=== PATIENT | female | born 1995 | race Caucasian/White ===

== ENCOUNTER 2017-05-10 20:16 | Inpatient (IN) | payer OTHER ==
[~2017-05-10] VITALS: Ht 172.7 cm; Wt 168.7 kg
[2017-05-10 23:12] LABS: BASOPHIL % 1.2 % (0-2); PLATELET COUNT 214 x10^3mcL (130-400); RED CELL DISTRIBUTION WIDTH 14.4 % (11.5-14.5)
[2017-05-10 23:26] LABS: UA SPECIFIC GRAVITY 1.005 (1.005-1.035); microscopic required? YES
[2017-05-10 23:27] LABS: urine erythrocyte 2+ (NEGATIVE)
[2017-05-10 23:31] LABS: T3 TOTAL 1.14 ng/mL
[2017-05-10 23:36] LABS: ALBUMIN 3.5 g/dL (3.4-5.0); ALKALINE PHOSPHATASE 88 U/L (46-116); ALT/SGPT 68 U/L (14-59); AST/SGOT 33 U/L (15-37); BILIRUBIN TOTAL 0.3 mg/dL (0.20-1.00); CALCIUM 9.1 mg/dL (8.5-10.1); CARBON DIOXIDE 28.1 mmol/L (21-32); CHLORIDE SERUM 99 mmol/L (98-107); CHOLESTEROL 176 mg/dL (<200); CHOLESTEROL/HDL RATIO 4.9; GFR1 > 60 mL/min; HDL CHOLESTEROL 36 mg/dL (40-60); LIPASE 161 IU/L (73-393); POTASSIUM SERUM 4.2 mmol/L (3.5-5.1); SODIUM SERUM 133 mmol/L (136-145); TOTAL PROTEIN, SERUM 7.4 g/dL (6.4-8.2); TRIGLYCERIDES 180 mg/dL (<150)
[2017-05-10 23:40] LABS: GLUCOSE SERUM 633 mg/dL (74-106)
[2017-05-10 23:46] LABS: FREE T4 1.1 ng/dL (0.76-1.46); FREE THYROXINE INDEX 2.7 ug/dL (1.4-4.5); T4(THYROXINE) 7.5 ug/dL (4.7-13.3)
[2017-05-11] VITALS (7 sets, daily range): BP systolic 117–157; BP diastolic 76–89
[2017-05-11 00:23] LABS: MAGNESIUM 1.9 mg/dL (1.8-2.4); PHOSPHOROUS 4.7 mg/dL (2.5-4.9)
[2017-05-12 06:35] VITALS: BP 11/78
[2017-05-12 06:42] LABS: CALCIUM 8.8 mg/dL (8.5-10.1); CHLORIDE SERUM 105 mmol/L (98-107); CREATININE SERUM 0.6 mg/dL (0.6-1.0); GFR1 > 60 mL/min; GLUCOSE SERUM 263 mg/dL (74-106); MAGNESIUM 1.7 mg/dL (1.8-2.4); PHOSPHOROUS 4.7 mg/dL (2.5-4.9); POTASSIUM SERUM 3.7 mmol/L (3.5-5.1); SODIUM SERUM 139 mmol/L (136-145)
[2017-05-12 07:30] VITALS: BP 155/83
[2017-05-12] MEDS ORDERED: GLU5 PO (11:18)
[2017-05-12] MEDS ORDERED: LIPI20 PO (11:19)
[2017-05-12] MEDS ORDERED: ZES10 PO (11:22)
[2017-05-12] MEDS ORDERED: LAC PO (11:22)
[2017-05-12] MEDS ORDERED: METFORMIN HCL1000 MG PO (11:23)
[2017-05-12] MEDS ORDERED: DIFLUCAN150 MG PO (11:24)
[2017-05-12] MEDS ORDERED: MAC100 PO (11:27)
[2017-05-12] MEDS ORDERED: LANCETS1 EACH MC (12:01)
[2017-05-12] MEDS ORDERED: TEST STRIPS1 EACH MC (12:01)
[2017-05-12 15:31] VITALS: BP 127/61
== END 2017-05-12 16:09 | disposition home or self-care (01) | DRG 420 ==
LOC: ED 20:16 → DU 23:50 → MU 05-11 14:25
PROVIDERS: Specialist; ADMIT Family Medicine
DX: E11.00 Type 2 diabetes mellitus with hyperosmolarity without nonketotic hyperglycemic-hyperosmolar coma (NKHHC) (principal); Z68.43 Body mass index [BMI] 50.0-59.9, adult; I10 Essential (primary) hypertension; N39.0 Urinary tract infection, site not specified; I16.0 Hypertensive urgency; N76.0 Acute vaginitis; Z83.3 Family history of diabetes mellitus; Z82.49 Family history of ischemic heart disease and other diseases of the circulatory system; E66.01 Morbid (severe) obesity due to excess calories; B35.6 Tinea cruris; E87.1 Hypo-osmolality and hyponatremia; E78.2 Mixed hyperlipidemia; R31.9 Hematuria, unspecified
CPT/HCPCS: 36600; 82962; 83880; 84439; 87491; 87591; J0696; J1815; J3490; J7030; Q0092

== ENCOUNTER 2017-12-09 16:39 | Emergency (ER) | payer OTHER ==
[~2017-12-09] VITALS: Ht 172.7 cm; Wt 150.6 kg
[~2017-12-09 16:39] MED LIST: DIFLUCAN150 MG PO; GLU5 PO; LAC PO; LANCETS1 EACH MC; LIPI20 PO; MAC100 PO; METFORMIN HCL1000 MG PO; TEST STRIPS1 EACH MC; ZES10 PO
[2017-12-09 16:44] VITALS: BP 203/106; Ht 172.7 cm; Wt 150.6 kg
== END 2017-12-09 18:21 | disposition home or self-care (01) ==
LOC: ED 16:39
DX: L02.415 Cutaneous abscess of right lower limb (principal); I10 Essential (primary) hypertension; E11.9 Type 2 diabetes mellitus without complications
CPT/HCPCS: J2001

== ENCOUNTER 2017-12-11 17:36 | Emergency (ER) | payer OTHER ==
[~2017-12-11] VITALS: Ht 172.7 cm; Wt 146.5 kg
[2017-12-11 18:09] VITALS: Ht 172.7 cm; Wt 146.5 kg
[2017-12-11 18:50] VITALS: BP 157/91
== END 2017-12-11 18:50 | disposition home or self-care (01) ==
LOC: ED 17:36
DX: L02.415 Cutaneous abscess of right lower limb (principal); I10 Essential (primary) hypertension; E11.9 Type 2 diabetes mellitus without complications

== ENCOUNTER 2018-01-31 15:53 | Emergency (ER) | payer OTHER ==
[~2018-01-31] VITALS: Ht 172.7 cm; Wt 147.0 kg
[2018-01-31 15:57] VITALS: Ht 172.7 cm; Wt 147.0 kg
[2018-01-31 17:52] VITALS: BP 124/57
== END 2018-01-31 17:52 | disposition home or self-care (01) ==
LOC: ED 15:53
DX: J20.8 Acute bronchitis due to other specified organisms (principal); I10 Essential (primary) hypertension; E11.9 Type 2 diabetes mellitus without complications; E78.00 Pure hypercholesterolemia, unspecified
CPT/HCPCS: 82962; J1885; Q0092

== ENCOUNTER 2018-02-18 23:16 | Emergency (ER) | payer OTHER ==
[~2018-02-18] VITALS: Ht 172.7 cm; Wt 147.9 kg
[2018-02-18 23:55] VITALS: Ht 172.7 cm; Wt 147.9 kg
[2018-02-19 03:33] VITALS: BP 123/75
== END 2018-02-19 03:33 | disposition home or self-care (01) ==
LOC: ED 23:16
DX: S83.002A Unspecified subluxation of left patella, initial encounter (principal); L02.416 Cutaneous abscess of left lower limb; I10 Essential (primary) hypertension; E11.9 Type 2 diabetes mellitus without complications; E78.00 Pure hypercholesterolemia, unspecified; X58.XXXA Exposure to other specified factors, initial encounter; Y93.9 Activity, unspecified; Y92.89 Other specified places as the place of occurrence of the external cause; Y99.8 Other external cause status
CPT/HCPCS: J1885; Q0092

== ENCOUNTER 2018-04-07 20:58 | Emergency (ER) | payer OTHER ==
[~2018-04-07] VITALS: Ht 172.7 cm; Wt 104.9 kg
[2018-04-07 23:03] VITALS: BP 164/113
== END 2018-04-07 23:03 | disposition home or self-care (01) ==
LOC: ED 20:58
DX: M67.431 Ganglion, right wrist (principal); E78.00 Pure hypercholesterolemia, unspecified; I10 Essential (primary) hypertension; E11.9 Type 2 diabetes mellitus without complications

== ENCOUNTER 2019-08-21 00:11 | Emergency (ER) | payer OTHER ==
[2019-08-21 01:59] LABS: BASOPHIL % 1.1 % (0-2); PLATELET COUNT 242 x10^3mcL (130-400); RED CELL DISTRIBUTION WIDTH 12.6 % (11.5-14.5)
[2019-08-21 02:21] LABS: CARBON DIOXIDE 24.7 mmol/L (21-32); CHLORIDE SERUM 98 mmol/L (98-107); CREATININE SERUM 0.9 mg/dL (0.6-1.0); GFR1 > 60 mL/min; GLUCOSE SERUM 389 mg/dL (74-106); POTASSIUM SERUM 3.8 mmol/L (3.5-5.1); SODIUM SERUM 134 mmol/L (136-145)
[2019-08-21 02:23] LABS: microscopic required? YES; urine erythrocyte NEGATIVE (NEGATIVE)
[2019-08-21 02:25] LABS: ALKALINE PHOSPHATASE 70 U/L (46-116); ALT/SGPT 39 U/L (14-59); AST/SGOT 7 U/L (15-37); BILIRUBIN TOTAL 0.26 mg/dL (0.20-1.00); HDL CHOLESTEROL 43 mg/dL (40-60); LIPASE 124 IU/L (73-393); TOTAL PROTEIN, SERUM 6.8 g/dL (6.4-8.2); TRIGLYCERIDES 143 mg/dL (<150)
[2019-08-21 02:27] LABS: ALBUMIN 3.2 g/dL (3.4-5.0); CHOLESTEROL 202 mg/dL (<200); CHOLESTEROL/HDL RATIO 4.7
[2019-08-21 02:32] LABS: FREE T4 1.1 ng/dL (0.76-1.46); FREE THYROXINE INDEX 2.9 ug/dL (1.4-4.5); T4(THYROXINE) 8.8 ug/dL (4.7-13.3)
[2019-08-21 02:43] LABS: AMPHETAMINE QUAL UR NONE DETECTED (See below)
[2019-08-21 03:05] LABS: T3 TOTAL 1.6 ng/mL
[2019-08-21 06:28] VITALS: BP 109/68
== END 2019-08-21 06:28 | disposition home or self-care (01) ==
LOC: ED 00:11
PROVIDERS: Specialist
DX: R07.89 Other chest pain (principal); E11.65 Type 2 diabetes mellitus with hyperglycemia; E78.00 Pure hypercholesterolemia, unspecified; I10 Essential (primary) hypertension; Z98.890 Other specified postprocedural states
CPT/HCPCS: 82962; 84439; J0696; J1885; J3010; Q0092

== ENCOUNTER 2019-10-04 19:51 | Emergency (ER) | payer OTHER ==
[~2019-10-04] VITALS: Ht 172.7 cm; Wt 142.4 kg
[2019-10-04 20:00] VITALS: Ht 172.7 cm; Wt 142.4 kg
[2019-10-04 21:58] LABS: BASOPHIL % 0.9 % (0-2); PLATELET COUNT 279 x10^3mcL (130-400); RED CELL DISTRIBUTION WIDTH 13.9 % (11.5-14.5)
[2019-10-04 22:08] LABS: CALCIUM 9.2 mg/dL (8.5-10.1); CHLORIDE SERUM 103 mmol/L (98-107); CREATININE SERUM 0.7 mg/dL (0.6-1.0); GFR1 > 60 mL/min; GLUCOSE SERUM 293 mg/dL (74-106); POTASSIUM SERUM 4.1 mmol/L (3.5-5.1); SODIUM SERUM 138 mmol/L (136-145)
[2019-10-04 22:13] LABS: ALBUMIN 3.2 g/dL (3.4-5.0); ALKALINE PHOSPHATASE 61 U/L (46-116); ALT/SGPT 32 U/L (14-59); AMYLASE 57 U/L (25-115); AST/SGOT 11 U/L (15-37); BILIRUBIN TOTAL 0.2 mg/dL (0.20-1.00); LIPASE 108 IU/L (73-393); TOTAL PROTEIN, SERUM 7.1 g/dL (6.4-8.2)
[2019-10-04 22:19] LABS: UA SPECIFIC GRAVITY >=1.030 (1.005-1.035); microscopic required? YES; urine erythrocyte 3+ (NEGATIVE)
[2019-10-05 01:55] VITALS: BP 133/74
== END 2019-10-05 01:55 | disposition home or self-care (01) ==
LOC: ED 19:51
PROVIDERS: Emergency Medicine
DX: O02.1 Missed abortion (principal)
CPT/HCPCS: J2405; J7030; Q0092

== ENCOUNTER 2019-10-08 18:40 | Emergency (ER) | payer OTHER ==
[~2019-10-08] VITALS: Ht 172.7 cm; Wt 138.3 kg
[2019-10-08 18:45] VITALS: Ht 172.7 cm; Wt 138.3 kg
[2019-10-08 19:18] LABS: BASOPHIL % 0.8 % (0-2); PLATELET COUNT 294 x10^3mcL (130-400); RED CELL DISTRIBUTION WIDTH 13.4 % (11.5-14.5)
[2019-10-08 19:45] LABS: CALCIUM 9.2 mg/dL (8.5-10.1); CARBON DIOXIDE 25.3 mmol/L (21-32); CHLORIDE SERUM 106 mmol/L (98-107); CREATININE SERUM 0.6 mg/dL (0.6-1.0); GFR1 > 60 mL/min; GLUCOSE SERUM 172 mg/dL (74-106); POTASSIUM SERUM 4.1 mmol/L (3.5-5.1); SODIUM SERUM 142 mmol/L (136-145)
[2019-10-08 19:49] LABS: ALBUMIN 3.6 g/dL (3.4-5.0); ALKALINE PHOSPHATASE 63 U/L (46-116); ALT/SGPT 43 U/L (14-59); AST/SGOT 12 U/L (15-37); BILIRUBIN TOTAL 0.3 mg/dL (0.20-1.00); TOTAL PROTEIN, SERUM 7.8 g/dL (6.4-8.2)
[2019-10-08 20:29] LABS: UA SPECIFIC GRAVITY >=1.030 (1.005-1.035); microscopic required? YES; urine erythrocyte 3+ (NEGATIVE)
[2019-10-08 23:31] VITALS: BP 124/58
== END 2019-10-08 23:49 | disposition home or self-care (01) ==
LOC: ED 18:40
PROVIDERS: Emergency Medicine
DX: O03.9 Complete or unspecified spontaneous abortion without complication (principal); O24.911 Unspecified diabetes mellitus in pregnancy, first trimester; O16.1 Unspecified maternal hypertension, first trimester; E78.00 Pure hypercholesterolemia, unspecified; Z3A.01 Less than 8 weeks gestation of pregnancy
CPT/HCPCS: 36415

== ENCOUNTER 2019-12-23 10:59 | Emergency (ER) | payer OTHER ==
[~2019-12-23] VITALS: Ht 172.7 cm; Wt 137.9 kg
[2019-12-23 11:09] VITALS: Ht 172.7 cm; Wt 137.9 kg
[2019-12-23 15:32] VITALS: BP 114/63
== END 2019-12-23 15:32 | disposition home or self-care (01) ==
LOC: ED 10:59
DX: F07.81 Postconcussional syndrome (principal); M54.5 Low back pain; I10 Essential (primary) hypertension; E11.9 Type 2 diabetes mellitus without complications; E78.00 Pure hypercholesterolemia, unspecified; V49.9XXD Car occupant (driver) (passenger) injured in unspecified traffic accident, subsequent encounter
CPT/HCPCS: J1200; J1885; J2270; J2405; J2765; J7030; Q0092

== ENCOUNTER 2019-12-29 14:33 | Emergency (ER) | payer OTHER ==
[~2019-12-29] VITALS: Ht 172.7 cm; Wt 136.1 kg
[2019-12-29 14:36] VITALS: Ht 172.7 cm; Wt 136.1 kg
[2019-12-29 15:34] LABS: CALCIUM 9.6 mg/dL (8.5-10.1); CARBON DIOXIDE 27.2 mmol/L (21-32); CHLORIDE SERUM 102 mmol/L (98-107); CREATININE SERUM 0.8 mg/dL (0.6-1.0); GFR1 > 60 mL/min; GLUCOSE SERUM 319 mg/dL (74-106); POTASSIUM SERUM 4.3 mmol/L (3.5-5.1); SODIUM SERUM 138 mmol/L (136-145)
[2019-12-29 15:39] LABS: ALBUMIN 3.7 g/dL (3.4-5.0); ALKALINE PHOSPHATASE 68 U/L (46-116); ALT/SGPT 23 U/L (14-59); AST/SGOT 10 U/L (15-37); BILIRUBIN TOTAL 0.37 mg/dL (0.20-1.00); TOTAL PROTEIN, SERUM 7.7 g/dL (6.4-8.2)
[2019-12-29 15:43] LABS: BASOPHIL % 0.8 % (0-2); PLATELET COUNT 276 x10^3mcL (130-400); RED CELL DISTRIBUTION WIDTH 13.1 % (11.5-14.5)
[2019-12-29 18:08] VITALS: BP 128/54
== END 2019-12-29 18:08 | disposition home or self-care (01) ==
LOC: ED 14:33
PROVIDERS: Emergency Medicine
DX: S46.911A Strain of unspecified muscle, fascia and tendon at shoulder and upper arm level, right arm, initial encounter (principal); M79.604 Pain in right leg; M79.10 Myalgia, unspecified site; E11.9 Type 2 diabetes mellitus without complications; E78.00 Pure hypercholesterolemia, unspecified; X58.XXXA Exposure to other specified factors, initial encounter; Y93.89 Activity, other specified; Y92.89 Other specified places as the place of occurrence of the external cause; Y99.8 Other external cause status
CPT/HCPCS: J1885; J2405; Q0092